=== PATIENT | female | born 2000 | race Asian ===

== ENCOUNTER 2019-08-09 22:04 | Emergency (ER) | payer OTHER ==
--- NOTE | 2019-08-09 22:35 | RAD ---
XR Knee Lt 4 View STANDARD HISTORY: Injury, left knee pain FINDINGS: No fracture or dislocation is identified.
== END 2019-08-09 23:30 | disposition home or self-care (01) ==
LOC: ERS 22:04
DX: S83.92XA Sprain of unspecified site of left knee, initial encounter (principal); X50.1XXA Overexertion from prolonged static or awkward postures, initial encounter; Y93.41 Activity, dancing